=== PATIENT | female | born 1985 | race Caucasian/White ===

== ENCOUNTER → 2020-12-16 | Outpatient (CLI) | payer SELFPAY | LOC: LAB 10:08 | DX: Z20.822 Contact with and (suspected) exposure to COVID-19 (principal) ==

== ENCOUNTER → 2021-03-22 | Outpatient (CLI) | payer BC | LOC: LAB 14:41 | DX: Z20.822 Contact with and (suspected) exposure to COVID-19 (principal) ==

== ENCOUNTER → 2021-05-05 | Outpatient (CLI) | payer BC ==
[~2021-05-05] MED LIST: ADDERALL 30 MG30 MG PO; PREDNISONE20 M1 PO; PROAIR HFA0.09 MG/AC IH
== END ==
LOC: LAB 17:33
DX: U07.1 COVID-19 (principal)

== ENCOUNTER 2021-05-09 11:56 | Emergency (ER) | payer BC ==
[~2021-05-09] VITALS: Ht 172.7 cm; Wt 100.0 kg
[2021-05-09] MEDS ORDERED: PROAIR HFA0.09 MG/AC IH (12:17)
[2021-05-09] MEDS ORDERED: ADDERALL 30 MG30 MG PO (12:18)
[2021-05-09 13:02] LABS: ALBUMIN 4.2 g/dL (3.5-5.0); POTASSIUM 3.6 mmol/L (3.5-5.1); SODIUM 138 mmol/L (136-145)
[2021-05-09 13:03] LABS: CALCIUM 10.2 mg/dL (8.3-10.5)
[2021-05-09 13:04] LABS: GLUCOSE 92 mg/dL (65-105); TOTAL PROTEIN 7.5 g/dL (6.4-8.3)
[2021-05-09 13:06] LABS: TOTAL BILIRUBIN 0.7 mg/dL (0.2-1.2)
[2021-05-09 13:09] LABS: AST-SGOT 12 U/L (5-34)
[2021-05-09 13:11] LABS: ALT/SGPT 12 U/L (0-55)
[2021-05-09 13:47] LABS: D-DIMER 0.17 mg/L FEU (0.15-0.50)
[2021-05-09 13:55] LABS: CARBON DIOXIDE 17 mmol/L (22-29)
[2021-05-09 14:11] LABS: BASO # 0.02 K/mm3 (0.02-0.10); EOS # 0.07 K/mm3 (0.04-0.40); EOS % 0.6 % (1.0-5.0); HEMATOCRIT 39.5 % (37.0-47.0); HEMOGLOBIN 13.3 g/dL (12.5-16.0); LYMPH# 1.28 K/mm3 (1.50-4.00); MEAN CELL VOLUME 92 fl (78-100); MEAN CORPUSCULAR HEMOGLOBIN 31 pg (27-31); MEAN CORPUSCULAR HGB CONC 34 g/dL (33-37); MEAN PLATELET VOLUME 9.5 fl (7.4-10.4); MONO # 0.58 K/mm3 (0.20-0.80); NEU # 9.77 K/mm3 (1.40-6.50); PLATELET COUNT 261 K/mm3 (130-400); RED BLOOD COUNT 4.31 M/mm3 (4.10-5.30); RED CELL DISTRIBUTION WIDTH 12.7 % (11.5-14.5); WHITE BLOOD COUNT 11.8 K/mm3 (4.8-10.8)
[2021-05-09 14:24] LABS: TROPONIN-I < 0.030 ng/mL (<0.030)
[2021-05-09] MEDS ORDERED: PREDNISONE20 M1 PO (14:26)
[2021-05-09 14:43] VITALS: BP 112/73
== END 2021-05-09 15:01 | disposition home or self-care (01) ==
LOC: ED 11:56
PROVIDERS: Nurse Practitioner
DX: U07.1 COVID-19 (principal); F90.9 Attention-deficit hyperactivity disorder, unspecified type; E66.3 Overweight; Z68.33 Body mass index [BMI] 33.0-33.9, adult; Z73.0 Burn-out; Z79.899 Other long term (current) drug therapy
CPT/HCPCS: J1100; J7030

== ENCOUNTER → 2021-08-03 | Outpatient (CLI) | payer BC | LOC: RAD 07:13 | DX: M79.671 Pain in right foot (principal) ==